=== PATIENT | male | born 1980 | race Caucasian/White ===

== ENCOUNTER 2025-04-04 12:54 | Emergency (ER) | payer OTHER, SELFPAY ==
--- OUTSIDE RECORDS SUMMARY | 2020-05-22 04:15 | XMS_ITS | Continuity of Care Document ---
Author Organization [facility] Address [address] [place] [address] Phone Care Team Providers Care Package Sealer Machine Name Role Phone Sinan Zepeda MD Unavailable Unavailable Allergies, Adverse Reactions, Alerts Substance Reaction Status Criticality No Known Allergies Active No Inform ation Medications Medication Instructions Dosage Effective Dates (start - stop) Status Comments Naprosyn 500 mg tablet take 1 tablet by oral route 2 times every day with food 500 MG - Active rizatriptan 10 mg tablet - Active tramadol 50 mg tablet take 1 tablet by oral route every 6 hours as needed 50 MG - Active CYCLOBENZAPRINE HCL (unknown strength) take 1 tablet by oral route 3 times every day Not Available - Active Procedures Procedure Date OFFICE/OUTPATIENT VISIT EST OFFICE/OUTPATIENT VISIT EST OFFICE/OUTPATIENT VISIT EST OFFICE/OUTPATIENT VISIT EST RADEX SPI LUMBOSAC 2/3 VIEWS POSTOP FOLLOW-UP VISIT POSTOP FOLLOW-UP VISIT RADEX SPI LUMBOSAC 2/3 VIEWS POSTOP FOLLOW-UP VISIT POSTOP FOLLOW-UP VISIT OFFICE CONSULTATION LUMBAR SPINE FUSION OFFICE/OUTPATIENT VISIT EST DISABILITY EXAMINATION Advance Directives Directive Yes / No Effective Date File Name No Information Encounters Encounter Description Practice Location Reason(s) For Visit Diagnoses Date Provider Providers Copied on Encounter OFFICE/OUTPAT IENT VISIT EST [facility], [address], [place], [address], [place] tel:[phone] [facility] My back is doing about the same (chief complaint) Body mass index [BMI] 21.0-21.9, adultRight lumbar radiculopathyHN P (herniated nucleus pulposus), lumbar May- 4-202 0 Zepeda Sinan. [address] [place], [place], [id number] . tel: [phone] OFFICE/OUTPAT IENT VISIT EST [facility], [address], [address], tel:[phone] [facility] I am doing OK (chief complaint) Body mass index (BMI) 21.0-21.9, adultRight lumbar radiculopathyHN P (herniated nucleus pulposus), lumbar Jan-0 7 0 Zepeda Sinan. [address] [place], [place], [id number] . tel: [phone] [facility], [address], [facility], tel:[phone] [facility] Right lumbar radiculopathy 0 Zepeda Sinan. [address] [place], [place], [id number] . tel: [phone] OFFICE/OUTPAT IENT VISIT EST [facility], [address], [address], tel:[phone] [facility] My back still bothers me some (chief complaint) Body mass index (BMI) 21.0-21.9, adultRight lumbar radiculopathyHN P (herniated nucleus pulposus), lumbar 0 8 0 Zepeda Sinan. [address] [place], [place], [id number] . tel: [phone] OFFICE/OUTPAT IENT VISIT EST [facility], [address], [address], tel:[phone] [facility] Body mass index (BMI) 21.0-21.9, adultRight lumbar radiculopathyHN P (herniated nucleus pulposus), lumbar Jono- 0-202 0 Zepeda Sinan. [address] [place], [place], [id number] . tel:[phone] [facility], [address], [address], [place] tel:[phone] [facility] My pain returned on Monday (chief complaint) Right lumbar radiculopathyBo dy mass index (BMI) 21.0-21.9, adultHNP (herniated nucleus pulposus), lumbar May-2 8-202 0 Zepeda Sinan. [address] [place], [place], [address] . tel:[phone] [facility], [address], [address], tel:[phone] [facility] I am doing alright (chief complaint) Body mass index (BMI) 21.0-21.9, adultRight lumbar radiculopathyHN P (herniated nucleus pulposus), lumbar May-0 6-202 0 Zepeda Sinan. [address] [place], [place], [id number] . tel:[phone] [facility], [address], [address], [place] tel:[phone] [facility] I am doing alright (chief complaint) Body mass index (BMI) 21.0-21.9, adultRight lumbar radiculopathyHN P (herniated nucleus pulposus), lumbar Apr-1 3-202 0 Zepeda Sinan. [address] [place], [place], [id number] . tel:[phone] [facility], [address], [address], [place] tel:[phone] [facility] I am doing alright (chief complaint) Right lumbar radiculopathyBo dy mass index (BMI) 21.0-21.9, adultHNP (herniated nucleus pulposus), lumbar Aug- 0 Duane Menon. [address] [facility], [place], [place], [id number] . tel: [phone] Referring Provider: Gopi Cuba, [address], [place], [address]. tel:[phone] OFFICE CONSULTATION [facility], [address] [facility] [address], [place], [address], [place] tel:[phone] [facility] BRIAN ZEPEDA 08/19 (chief complaint) Degenerative disc disease at L5-S1 level 0 [facility] Ramone. [address] [facility]. [address], [place], [address]. tel: [phone] Referring Provider: Sinan Zepeda, [address] [facility], [place], [address]. tel:[phone] [facility], [address] [address], [place], [address], [place] tel:[phone] [facility] Right lumbar radiculopathyHN P (herniated nucleus pulposus), lumbarIntervert ebral disc disorders with radiculopathy, lumbosacral region 0 Duane Menon. [address] [facility], [place], [place], [address] . tel: [phone] OFFICE/OUTPAT IENT VISIT EST [facility], [address] [address], [place], [address], [place] tel:[phone] [facility] My back and right leg still hurt alot (chief complaint) Right lumbar radiculopathyHN P (herniated nucleus pulposus), lumbarBody mass index (BMI) 23.0-23.9, adult 0 Duane Menon. [address] [place], [place], [address] . tel: [phone] DISABILITY EXAMINATION [facility], [address] [address], [place], [address], [place] tel:[phone] [facility] My back and right leg hurt alot (chief complaint) Body mass index (BMI) 23.0-23.9, adultLeft lumbar radiculopathyHN P (herniated nucleus pulposus), lumbar 0 Duane Sinan. [address], [place], [place], [address] . tel: [phone] Family History Family Member Type Diagnosis Age At Onset Mother Problem (finding) hypertension Mother Problem (finding) malignant neop lasm of breast in first degree relative Payers Payer name Insurance type Covered libertarian ID Shena feliciano(s) [facility] [place] [id number] Social History Type Description Quantity Date Captured Comments Alcohol Use Details Unknown Caffeine Use Details Unknown Tobacco Use Status Ex-cigarette smoker 020 Smoking Status Former smoker Smoking Tobacco Use Details Cigarette: Age Started: 20, Age Stopped: 36, Years Used 18 Cigarette: No Details Available Sex Male Vital Signs Date / Time: Height Weight BMI Pulse Rate Blood Pressure Temperature Respiratory Rate Body Surface Area Head Circumference Head Circ. Percentile Wt./Mu. Percentile BMI percentile Pulse Ox Inhaled Ox 9:55 AM 72.00 in 71.214 kg (157.00 lbs) 21.2 9 kg/m eter (2) Chief Complaint And Reason For Visit From encounter dated '05/22/2020 09:15'. My back is doing about the same (chief complaint) Reason For Referral Reason For Referral No Information Plan Of Treatment Date Type Action Status Goal Dietary education for weight gain completed Referral Ordered: CT LMBR SPI C+ MATRL (Lumbar CT Myelogram) Appointment date/timeframe: 11/22/2019 ordered Referral Ordered: MYELOGRAPY LUMBOSAC RS&I ordered Referral Ordered: RADEX SPI LUMBOSAC 2/3 VIEWS ordered Referral Ordered: RADEX SPI LUMBOSAC 2/3 VIEWS spine, lumbar ordered Referral Ordered: [facility] Gong [facility] : Surgery (related to Right lumbar radiculopathy) ordered Referral Referred To: Ramone Gong [address] [place], [place], [phone] Ordered: Referrals: [facility] : Surgery. Ramone Gong. 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 He has tried non-operative methods without success. ALIF ZEPEDA 08/19 My back and right le g still hurt alot My back and right leg hurt alot Functional Status Date Functional Assessmen t Pain Score 4/10 Instructions Date Instruction Additional Infor mation Discussed treatment options Rela phuc to HNP (herniated nucleus pulposus), lumbar Dietary needs education Related to Body mass index [BMI] 21.0-21.9, adult Dietary education for weight gai n Related to Body mass index (BMI) 21.0-21.9, adult Discussed treatment options Rela phuc to HNP (herniated nucleus pulposus), lumbar Discussed treatment options Rela phuc to HNP (herniated nucleus pulposus), lumbar Dietary needs education Related to Body mass index (BMI) 21.0-21.9, adult Dietary needs education Related to Body mass index (BMI) 21.0-21.9, adult Take medication as directed. Rel ated to HNP (herniated nucleus pulposus), lumbar Discussed treatment options Rela phuc to HNP (herniated nucleus pulposus), lumbar Discussed treatment options Rela phuc to HNP (herniated nucleus pulposus), lumbar Dietary needs education Related to Body mass index (BMI) 21.0-21.9, adult At this time, I feel the patient would benefit from a course of non-operative management. I will start the patient on Naprosyn 500mg p.o. b.i.d. for the next three weeks. I will also start the patient in physical therapy to work on range of motion and strengthening of the lumbar spine and modalities as seen fit by the physical therapist. I discussed with the patient the importance of continuing home therapy once formal therapy has ended. I would like to see the patient again in six weeks. All the patient's questions were answered. Related to HNP (herniated nucleus pulposus), lumbar Take medication as directed. Rel ated to HNP (herniated nucleus pulposus), lumbar Continue home exercise program. Related to HNP (herniated nucleus pulposus), lumbar Discussed treatment options Rela phuc to HNP (herniated nucleus pulposus), lumbar Dietary needs education Related to Body mass index (BMI) 21.0-21.9, adult Patient has been see n and evaluated by the spine surgeon and recommended to undergo any interbody fusion. Risks and benefits related to this, including but not exclusive to infection, herniation, deep venous thrombosis, injury to adjacent structures as well as retrograde ejaculation were discussed. Patient understands all these risks and agrees to proceed. Related to Degenerative disc disease at L5-S1 level Avoid heavy lifting/ strenuous activity Related to Degenerative disc disease at L5-S1 level At this time, we hav e exhausted all non-operative management for this patient in the form of physical therapy, anti-inflammatories, epidural steroid injections, and life style modifications, all of which have failed to alleviate the patient's back and leg symptoms. I feel the patient would be an excellent candidate for an anterior lumbar interbody fusion L5-S1. The risks and benefits associated with the procedure were discussed at length with the patient which include bleeding, infection, nerve injury, non-union, continued pain, and need for further surgery. I also discussed the risk of injury to a nerve resulting in weakness in one or both legs, risk of re-herniation of more disc material, risk of dural tear resulting in a CSF leak requiring further surgery, and the risk of developing blood clots in their leg that could result in pulmonary embolus or stroke as well as possible blindness. The patient understood these risks and benefits and wished to proceed with the above-stated procedure. We will have him see Dr. Misael Gong because he will do the anterior approach for the surgery. In addition we will obtain routine blood work prior to surgery. All the patient's questions were answered. In terms of work, I will place him on light duty work restrictions- No bending, pulling, pushing, stooping, no lifting heavier than 10 pounds, no overhead lifting. Related to HNP (herniated nucleus pulposus), lumbar Assessments Type Assessment Date assessment Body mass index [BMI] 21.0-21.9, adult assessment Right lumbar radiculopathy assessment HNP (herniated nucleus pulposus) , lumbar Patient Care Teams Name Effective Dates (start - stop) Status Members No Information
[2025-04-04] VITALS (11 sets, daily range): BP systolic 101–128; BP diastolic 56–84; PULSE 88–122; RESP 12–24; O2SAT 96–100
--- NOTE | ~2025-04-04 | XR_ITS ---
Examination: XR chest 1V portable Clinical History: AMS Comparison: None Technique: Portable AP Findings: Heart size normal. Streaky right lower lobe airspace disease. No acute bony abnormality. IMPRESSION: 1. Streaky right lower lobe airspace disease likely pneumonia. Reviewed, dictated and finalized at location .
--- NOTE | ~2025-04-04 | CT_ITS ---
EXAMINATION: CT brain wo con COMPARISON: None HISTORY: AMS/seizure TECHNIQUE: Axial images were obtained through the brain without IV contrast. CT scan performed using dose optimization techniques including the following automated exposure control; adjustment of mA and/or kV; use of iterative reconstruction technique. Automatic exposure control was used to reduce radiation dose. Permanent radiation dose record is archived to PACS. FINDINGS: No acute infarct or parenchymal hemorrhage. No abnormal mass or mass effect. No midline shift. No extra-axial fluid collections. No hydrocephalus. . Mastoid air cells unremarkable. Sinuses and orbits unremarkable. No acute fracture. No significant facial or scalp soft tissue swelling evident. No radiopaque foreign body is seen. Impression: 1.No acute intracranial abnormality. Reviewed, dictated and finalized at location P. Impression: 1.No acute intracranial abnormality.
--- NOTE | 2025-04-04 12:55 | PC.NURSE ---
EDP called to bedside d/t abnormal breathing pattern despite patient HOB being elevated and NRB application. NPA placed by EDP. Breathing pattern improved.
[2025-04-04] MEDS: SODIUM CHLORIDE 0.9% IV 1,000 ML 999 ML IV CONT ×3 (13:00→14:20)
[2025-04-04 13:08] LABS: Hematocrit 48.7 % (42.0-52.0); Hemoglobin 14.7 g/dL (14.0-18.0); Immature Granulocyte Percent A 1.1 % (0-0.5); Lymphocytes Absolute Auto 5.62 K/mm3 (0.9-3.2); Mean Corpuscular HGB Conc 30.2 g/dl (32-36); Mean Corpuscular Hemoglobin 28.6 pg (26-34); Mean Corpuscular Volume 94.7 fl (80-100); Nucleated Red Blood Cells Absolute Auto 0.000 K/mm3 (0.0-0.012); Nucleated Red Blood Cells Perc 0.0 % (0.0-0.2); Platelet Count Result 369 k/mm3 (150-375); Red Blood Count 5.14 M/mm3 (4.6-6.20); White Blood Count 12.7 K/mm3 (4.5-10.0)
[2025-04-04 13:20] LABS: Alveolar/Arterial O2 Gradient < 0.0 mmHg; Carboxyhemoglobin 0.3 % THb (0-2.0); Fractional Inspired Oxygen 50 %; HCO3 ABG 18.1 mEq/l (22.0-26.0); Methemoglobin ABG 0.4 %THb (0-1.5); Oxygen Content ABG 20.5 %vol (16.0-22.0); Oxygen Saturation ABG 99.7 % (95.0-100.0); PCO2 ABG 47.6 mmHg (35.0-45.0); PO2 ABG 341.2 mmHg (80.0-100.0); PO2 FiO2 Ratio Arterial Blood 6.82 %; Reduced Hemoglobin 0.2 %THb (0-5.0)
[2025-04-04 13:22] LABS: Modified Allen's Test Pass; Site Drawn LEFT RADIAL
[2025-04-04 13:24] LABS: Alanine Aminotransferase 84 U/L (6-50); Albumin Level 5.2 g/dL (3.5-5.1); Alkaline Phosphatase 67 U/L (38-126); Anion Gap 33 mmol/L (4-12); Aspartate Amino Transferase 62 U/L (17-59); Bilirubin,Total 1.1 mg/dL (0.2-1.3); Blood Urea Nitrogen 11 mg/dL (9-20); Calcium 9.4 mg/dL (8.4-10.2); Carbon Dioxide 8 mmol/L (22-30); Chloride 101 mmol/L (98-107); Estimated CRCL calculation 54 ml/min; Estimated Glomerular Filt Rate 48; Glucose 117 mg/dL (65-110); Potassium 4.7 mmol/L (3.4-5.0); Sodium 142 mmol/L (137-145); Total Protein 8.3 g/dL (6.3-8.2)
[2025-04-04 13:34] LABS: Troponin I < 0.012 ng/mL (0.000-0.034)
[2025-04-04 13:36] LABS: INR 1.0; Prothrombin Time 13.5 Seconds (11.1-14.7)
[2025-04-04 13:37] LABS: Partial Thromboplastin Time 25.6 Seconds (22.3-36.8)
[2025-04-04] MEDS: SODIUM CHLORIDE 0.9% IV 300 ML 999 ML IV CONT (13:42)
--- NOTE | 2025-04-04 13:46 | ECG_ITS ---
Test Date: 2025-04-04 12:57:20 Measurements Intervals [place] Rate: 128 P: 116 OH: 168 QRS: 45 QRSD: 90 T: 45 QT: 337 QTc: 492 Interpretive Statements SINUS TACHYCARDIA NONSPECIFIC ST & T-WAVE ABNORMALITY- DIFFUSE LEADS BASELINE ARTIFACT- II, III, AVR, AVL, AVF, V1-V5 ABNORMAL ECG No previous ECG available for comparison Electronically Signed On 04-04-2025 15:09:01 CDT by Toni Melton D.O.
[2025-04-04 13:51] LABS: Add Urine Microscopic? YES; Appearance Urine Clear (Clear); Glucose Urine UA Negative (Negative); Leukocyte Esterase Ur Negative LEU/UL (Negative); Need Manual Microscopic Reviewed; Nitrate Urine Negative (Negative); Specific Grav Ur 1.015 (1.001-1.035)
[2025-04-04 14:08] LABS: Cannabinoid Screen Urine Negative (Negative)
--- NOTE | 2025-04-04 14:12 | PC.NURSE ---
Patient opened eyes to name-attempted to remove nasal trumpet- removed without issue by this RN. Family shook head no to question of seizure history, patient then fell back to sleep. Family at bedside
--- OUTSIDE RECORDS SUMMARY | 2025-04-04 14:58 | XMS_ITS | Clinical Summary ---
Author Organization [facility] Address [address] [place] [address] Phone Care Team Providers Care Souvenir Assembler Name Role Phone Gopi Garcia MD Primary Care Provider [phone] Allergies No known active allergies Medications rizatriptan ([facility] NP) 10 mg Tablet, Rapid Dissolve Place 10 mg inside cheek 1 time daily as needed for Migraine. may repeat in 2 hours; max dose 30mg in 24 hours Active diazePAM (VALIUM) 5 mg tabletIndications: Lumbar radiculopathy Take 1 Tablet (5 mg) by mouth every 8 hours as needed for Spasm. 60 Tablet 08/21/2019 9:33 AM TIME STUDY STATISTICIAN 0 Active docusate sodium (COLACE) 100 mg capsule Take 1 Capsule (100 mg) by mouth 2 times daily as needed for Constipation . 30 Capsule 08/21/2019 9:33 AM TIME STUDY STATISTICIAN 0 Active HYDROcodone-acetam inophen (NORCO) 7.5-325 mg TabletIndications: Lumbar radiculopathy Take 1-2 Tablets by mouth every 4 hours as needed for Pain. Max Daily Amount: 12 Tablets 84 Tablet 08/21/2019 9:33 AM TIME STUDY STATISTICIAN 0 Active multivitamin (DAILY-VÍCTOR) tablet Take 1 Tablet by mouth daily. 30 Tablet 0 Active multivitamin with folic acid (Thera) 400 mcg Tablet tablet Take 1 Tablet by mouth daily. 30 Tablet 08/21/2019 9:33 AM TIME STUDY STATISTICIAN 0 Active Social History Tobacco Use Types Packs/Day Years Used Date Smoking Tobacco: Former Cigarettes Q uit: 06/19/2016 Smokeless Tobacco: Never Alcohol Use Standard Drinks/Week Comments Yes 0 (1 standard drink = 0.6 oz pur e alcohol) Sex and Gender Information Value Date Recorded Sex Assigned at Not on file Legal Sex Male 2:37 PM TIME STUDY STATISTICIAN Gender Identity Not on file Sexual Orientation Not on file Last Filed Vital Signs Vital Sign Reading Time Taken Comments Blood Pressure 117/67 08/21/2019 8:45 AM TIME STUDY STATISTICIAN Pulse 91 08/21/2019 8:45 AM TIME STUDY STATISTICIAN Temperature 36.5 C (97.7 F) 08/21/2019 8:45 AM TIME STUDY STATISTICIAN Respiratory Rate 16 08/21/2019 8:45 AM TIME STUDY STATISTICIAN Oxygen Saturation 100% 08/21/2019 8:45 AM TIME STUDY STATISTICIAN Inhaled Oxygen Concentration - - Weight 70.3 kg (155 lb) 08/20/2019 5:51 PM TIME STUDY STATISTICIAN Height 182.9 cm (6') 08/20/2019 5:51 PM TIME STUDY STATISTICIAN Body Mass Index 21.02 08/20/2019 5:51 PM TIME STUDY STATISTICIAN Plan of Treatment Health Maintenance Due Date Last Done Comments DTAP/TDAP/TD VACCINES (1 - Tdap) 2001 HEPATITIS B VACCINES (1 of 3 - 19+ 3-dose series) 12/18 HPV VACCINES (1 - 3-dose SCDM series) 2009 INFLUENZA VACCINE (#1) 2025 08/18/2019 Medical Devices Implanted Type Area Transfer Specialist Device Identifier Shelf Expiration Date Model / Serial / Lot Hemostatic Surgiflo 8ml W/Thrombin [id number] - Sna Implanted:Qty : 2 on 08/20/2019 by Sinan Zepeda MD at [facility] Hemostatic N/A: Vertebrae [employer] 06/18/2020 [id number] / NA / [id number] Screw Sovereign 5.5x25mm Fa [id number] - [id number] Implanted:Qty : 3 on 08/20/2019 by Sinan Zepeda MD at [facility] Screw N/A: Spine Lumbar [employer]ANEK [id number] / / Spacer Sovereign 8d [id number] - [id number] Implanted:Qty : 1 on 08/20/2019 by Sinan Zepeda MD at [facility] Spacer N/A: Spine Lumbar [employer] 04/18/2027 [id number] / / [id number] Description:[id number] [place] Dbm Orthoblend 5ml [id number] - [id number] Implanted:Qty : 1 on 08/20/2019 by Sinan Zepeda MD at [facility] Tissue N/A: Spine Lumbar [employer] 04/22/2021 [id number] / [id number] / Description: REQ#[id number] Insurance RX SERVRX Commercial Advance Directives For more information, please contact: [phone] * Full Code (Latest Code Status on File) Date Activated Date Inactivated Comments 08/20/2019 11:12 AM 08/21/2019 12:26 PM Care Teams Souvenir Assembler Relationship Specialty Start Date End Date Gopi Garcia MD [address] [place] [id number] PCP - General Family Practice 08/05/19
--- NOTE | 2025-04-04 15:50 | ED_ITS ---
HPI - General Adult General Chief complaint: Altered Mental Status Stated complaint: unresponsive History of Present Illness HPI narrative: Patient is a 45-year-old male who presents ER from his work after having a seizure. Witnessed by coworkers that he was unconscious shins shaking. Additional activity for EMS without eyes going into the back his head and they gave him Versed. Blood sugar normal. No history of seizure disorder. No external trauma noted on exam. Family reports patient takes tramadol for back pain. No seizure history. Related Data Allergies Allergy/AdvReac Type Severity Reaction Status Date / Time No Known Allergies Allergy Verified 04/04/25 13:42 Review of Systems 2 Review of Systems: All systems reviewed & are unremarkable except as noted in HPI and below Constitutional: Constitutional: Reports no additional constitutional complaints ENT: Reports system reviewed and no additional complaints, except as documented Cardiovascular: Cardiovascular: Reports no additional cardiovascular complaints Respiratory: Respiratory: Reports no additional respiratory complaints Gastrointestinal: Gastrointestinal: Reports no additional gastrointestinal complaints Musculoskeletal: Musculoskeletal: Reports no additional musculoskeletal complaints PMF Past Medical History Medical History (Updated 04/04/25 @ 17:23 by John Cole MD) Chronic back pain Exam 2 Narrative: GENERAL: Well-appearing, well-nourished, and in no acute distress. HEAD: Normocephalic, atraumatic. EYES: PERRL and EOMI. ENT: Mucous membranes moist. Abrasion to the right tip of the tongue from biting. CHEST: Clear to auscultation. No respiratory distress. HEART: Regular rate and rhythm. Normal peripheral pulses. ABDOMEN: Soft, nontender, nondistended. EXTREMITIES: Normal range of motion. No edema. SKIN: Warm, dry, no rash. NEURO: Alert and oriented x3. PSYCH: Normal mood and affect. Course Course Emergency Course: Patient is Ali with sonorous respirations and a nasal trumpet was placed. Patient then woke up and is alert orient x3. No history of seizures. Discussed need for discontinuing tramadol. Discussed healthy sleeping habits to help prevent seizures. Mild bump in creatinine. Recommend follow-up with PCP. Also recommend oral antibiotics for possible aspiration. He had not had respiratory symptoms consistent with pneumonia but x-ray abnormal. Discussed driving precautions. Vital Signs Vital signs: Vital Signs Pulse Rate 122 H 04/04/25 12:49 Respiratory Rate 24 H 04/04/25 12:49 Blood Pressure 106/74 04/04/25 12:49 Pulse Oximetry 99 04/04/25 12:49 Oxygen Delivery Room Air 04/04/25 12:49 Pulse Rate 91 04/04/25 15:30 Respiratory Rate 21 H 04/04/25 15:30 Blood Pressure 123/84 04/04/25 15:30 Pulse Oximetry 97 04/04/25 15:30 Oxygen Delivery Non-Rebreather Mask 04/04/25 13:05 Oxygen Flow Rate 15 04/04/25 13:05 Medical Decision Making Vital Signs Vital Signs: Vital Signs Pulse Rate 122 H 04/04/25 12:49 Respiratory Rate 24 H 04/04/25 12:49 Blood Pressure 106/74 04/04/25 12:49 Pulse Oximetry 99 04/04/25 12:49 Oxygen Delivery Room Air 04/04/25 12:49 Pulse Rate 91 04/04/25 15:30 Respiratory Rate 21 H 04/04/25 15:30 Blood Pressure 123/84 04/04/25 15:30 Pulse Oximetry 97 04/04/25 15:30 Oxygen Delivery Non-Rebreather Mask 04/04/25 13:05 Oxygen Flow Rate 15 04/04/25 13:05 Lab Data 04/04/25 12:59 04/04/25 12:59 Labs: Lab Results 04/04/25 04/04/25 04/04/25 Range/Units 12:58 12:59 13:18 WBC 12.7 H (4.5-10.0) K/mm3 RBC 5.14 (4.6-6.20) M/mm3 Hgb 14.7 (14.0-18.0) g/dL Hct 48.7 (42.0-52.0) % MCV 94.7 (80-100) fl MCH 28.6 (26-34) pg MCHC 30.2 L (32-36) g/dl RDW 13.1 (11.5-14.5) % Plt Count 369 (150-375) k/mm3 MPV 8.6 (7.4-10.4) fl Immature Gran % (Auto) 1.1 H (0-0.5) % Neut % (Auto) 40.5 L (45.5-73.1) % Lymph % (Auto) 44.4 H (18.3-44.2) % [place] % (Auto) 9.9 H (2.6-8.5) % Eos % (Auto) 3.1 (0-4.4) % Baso % (Auto) 1.0 (0.2-1.2) % Lymph # (Auto) 5.62 H (0.9-3.2) K/mm3 [place] # (Auto) 1.3 H (0.1-0.6) K/mm3 Eos # (Auto) 0.4 H (0-0.3) K/mm3 Baso # (Auto) 0.1 (0.0-0.1) K/mm3 Abs Immat Gran (auto) 0.14 H (0.00-0.031) K/mm3 Absolute Neuts (auto) 5.1 (1.3-6.7) K/mm3 Absolute Nucleated RBC 0.000 (0.0-0.012) K/mm3 Nucleated RBC % 0.0 (0.0-0.2) % PT 13.5 (11.1-14.7) Seconds INR 1.0 APTT 25.6 (22.3-36.8) Seconds Methemoglobin 0.4 (0-1.5) %THb Sodium 142 (137-145) mmol/L Potassium 4.7 (3.4-5.0) mmol/L Chloride 101 (98-107) mmol/L Carbon Dioxide 8 L (22-30) mmol/L Anion Gap 33 H (4-12) mmol/L BUN 11 (9-20) mg/dL Creatinine 1.56 H (0.7-1.3) mg/dL Estim Creat Clear Calc 54 ml/min Estimated GFR 48 L (59 - ) Glucose 117 H (65-110) mg/dL POC Capillary Glucose 118 H (65-105) mg/dl Lactic Acid 19.6 H* (0.7-2.0) mmol/L Calcium 9.4 (8.4-10.2) mg/dL Total Bilirubin 1.1 (0.2-1.3) mg/dL AST 62 H (17-59) U/L ALT 84 H (6-50) U/L Alkaline Phosphatase 67 (38-126) U/L Troponin I < 0.012 (0.000-0.034) ng/mL Total Protein 8.3 H (6.3-8.2) g/dL Albumin 5.2 H (3.5-5.1) g/dL Urine Color (Yellow) Urine Appearance (Clear) Urine pH (5.0-9.0) Ur Specific [place] (1.001-1.035) Urine Protein (Negative) mg/dL Urine Glucose (UA) (Negative) mg/dL Urine Ketones (Negative) mg/dL Ur Blood (Man) (Negative) Urine Nitrate (Negative) Urine Bilirubin (Negative) Urine Urobilinogen (<2.0) mg/dL Add Ur Microanalysis Leukocyte Esterase Rfl (Negative) ASHELY/UL Urine RBC (0-2) /hpf Urine WBC (0-3) /hpf Ur Squamous Epith Cells (Few) /hpf Urine Bacteria /hpf Urine Casts Urine Opiates Screen (Negative) Urine Methadone Screen (Negative) Ur Barbiturates Screen (Negative) Ur Phencyclidine Scrn (Negative) Ur Amphetamine Screen (Negative) U Benzodiazepines Scrn (Negative) Urine Cocaine Screen (Negative) U Cannabinoids Screen (Negative) Ethyl Alcohol < 10 (<10) mg/dL 04/04/25 04/04/25 Range/Units 13:30 16:08 WBC (4.5-10.0) K/mm3 RBC (4.6-6.20) M/mm3 Hgb (14.0-18.0) g/dL Hct (42.0-52.0) % MCV (80-100) fl MCH (26-34) pg MCHC (32-36) g/dl RDW (11.5-14.5) % Plt Count (150-375) k/mm3 MPV (7.4-10.4) fl Immature Gran % (Auto) (0-0.5) % Neut % (Auto) (45.5-73.1) % Lymph % (Auto) (18.3-44.2) % [place] % (Auto) (2.6-8.5) % Eos % (Auto) (0-4.4) % Baso % (Auto) (0.2-1.2) % Lymph # (Auto) (0.9-3.2) K/mm3 [place] # (Auto) (0.1-0.6) K/mm3 Eos # (Auto) (0-0.3) K/mm3 Baso # (Auto) (0.0-0.1) K/mm3 Abs Immat Gran (auto) (0.00-0.031) K/mm3 Absolute Neuts (auto) (1.3-6.7) K/mm3 Absolute Nucleated RBC (0.0-0.012) K/mm3 Nucleated RBC % (0.0-0.2) % PT (11.1-14.7) Seconds INR APTT (22.3-36.8) Seconds Methemoglobin (0-1.5) %THb Sodium (137-145) mmol/L Potassium (3.4-5.0) mmol/L Chloride (98-107) mmol/L Carbon Dioxide (22-30) mmol/L Anion Gap (4-12) mmol/L BUN (9-20) mg/dL Creatinine (0.7-1.3) mg/dL Estim Creat Clear Calc ml/min Estimated GFR (59 - ) Glucose (65-110) mg/dL POC Capillary Glucose (65-105) mg/dl Lactic Acid 1.6 (0.7-2.0) mmol/L Calcium (8.4-10.2) mg/dL Total Bilirubin (0.2-1.3) mg/dL AST (17-59) U/L ALT (6-50) U/L Alkaline Phosphatase (38-126) U/L Troponin I (0.000-0.034) ng/mL Total Protein (6.3-8.2) g/dL Albumin (3.5-5.1) g/dL Urine Color Yellow (Yellow) Urine Appearance Clear (Clear) Urine pH 6.5 (5.0-9.0) Ur Specific [place] 1.015 (1.001-1.035) Urine Protein 2+ H (Negative) mg/dL Urine Glucose (UA) Negative (Negative) mg/dL Urine Ketones Negative (Negative) mg/dL Ur Blood (Man) Negative (Negative) Urine Nitrate Negative (Negative) Urine Bilirubin Negative (Negative) Urine Urobilinogen 1.0 (<2.0) mg/dL Add Ur Microanalysis Reviewed Leukocyte Esterase Rfl Negative (Negative) ASHELY/UL Urine RBC 0-2 (0-2) /hpf Urine WBC 0-5 (0-3) /hpf Ur Squamous Epith Cells None seen (Few) /hpf Urine Bacteria None seen /hpf Urine Casts 11-20 Urine Opiates Screen Negative (Negative) Urine Methadone Screen Negative (Negative) Ur Barbiturates Screen Negative (Negative) Ur Phencyclidine Scrn Negative (Negative) Ur Amphetamine Screen Negative (Negative) U Benzodiazepines Scrn Positive A (Negative) Urine Cocaine Screen Negative (Negative) U Cannabinoids Screen Negative (Negative) Ethyl Alcohol (<10) mg/dL ABG Data ABG results: 04/04/25 13:18 Puncture Site Left radial ABG pH 7.198 L* ABG pCO2 47.6 H ABG pO2 341.2 H ABG PO2/FiO2 Ratio 6.82 ABG HCO3 18.1 L ABG O2 Saturation 99.7 ABG O2 Content 20.5 ABG Base Excess -9.9 A-a Gradient < 0.0 Oxyhemoglobin 99.1 Carboxyhemoglobin 0.3 Reduced Hemoglobin 0.2 Total Hemoglobin 14.1 O2 Delivery Device Non-rebreather mask O2 Liters/Min Not Reportable FiO2 50 Imaging Data Radiologist's impression: ITS Impressions Head CT 04/04/25 13:13 Impression: 1.No acute intracranial abnormality. Chest X-Ray 04/04/25 13:28 IMPRESSION: 1. Streaky right lower lobe airspace disease likely pneumonia. Discharge Plan Discharge Clinical Impression: Seizure, Pneumonia Patient Disposition: Home Condition: Stable Instructions: Antibiotic Form, Community Acquired Pneumonia (ED), New-Onset Seizure in Children (ED) Additional Instructions: You had a seizure. Stop taking tramadol. Your not to operate a motor vehicle/heavy machinery until your 6 months seizure-free and cleared by neurologist. Call the neurologist listed below to schedule follow-up appointment. Make sure to practice good sleep habits, avoid any intoxicants such as alcohol/drugs, and follow-up with your primary care doctor as well. Patient Language: [place] Prescriptions: New azithromycin 250 mg tablet See Rx Instructions .ROUTE .COMPLEX Qty: 6 0RF Rx Instructions: take 500 mg today (day 1), then 250 mg for 4 days (days 2-5) amoxicillin-pot clavulanate 875-125 mg tablet 1 tablet PO Q12H Qty: 10 0RF Follow-up/Referrals: Najma Hernandez MD [Physician, Neurology] - 1 Week
== END 2025-04-04 17:56 | disposition home or self-care (01) ==
PROVIDERS: Emergency Provider Emergency Medicine
DX: R56.9 Unspecified convulsions (principal); J18.9 Pneumonia, unspecified organism
CPT/HCPCS: 36415; 36600; 70450; 71045; 80053; 80307; 81001; 82077; 82375; 82805; 82948; 83050; 83605; 84484; 85018; 85025; 85610; 85730; 93005; 96360; 96361; 99284; J7030